=== PATIENT | male | born 1965 | race Hispanic/Latino ===

== ENCOUNTER → 2024-03-15 | Day surgery (SDC) | payer OTHER ==
[~2024-03-15] MED LIST: ACETAMINOPHEN 1000 MG/100 ML IV PRN; ASPIRIN 325 MG TAB PO SCH; ASPIRIN81 MG PO; CELECOXIB 100 MG CAP PO SCH; DIPHENHYDRAMINE HCL INJ 50 MG/ML VIAL IV PRN; DOCUSATE SODIUM 100 MG CAP PO PRN; GEMFIBROZIL600 MG PO; HYDROCODONE/APAP 5MG-325MG TAB PO PRN; METFORMIN HCL500 MG PO; ONDANSETRON HCL INJ 2MG/ML 2ML 2 MG/ML VIAL IV PRN; ROPIVACAINE 246.25 MG, EPINEPHRINE HCL 1:1000 1ML 0.5 MG, CLONIDINE HCL 0.08 MG, KETORO... INJ ONE; ROPIVACAINE/EPI/CLONIDINE/KET 50 ML SYRINGE INJ ONE; SODIUM CHLORIDE 0.9% 1000ML 1,000 ML IV SCH; SODIUM CHLORIDE 0.9% 500ML 500 ML ONE; TRANEXAMIC ACID 20 ML ONE; TYLENOL325 MG PO; Vancomycin IV 500 MG ONE; ZESTRIL2.5 MG PO; ZETIA10 MG PO
[2024-03-15] MEDS: CEFAZOLIN SODIUM 2 GM ONE (09:30)
[2024-03-15] MEDS: LACTATED RINGER'S 1,000 ML ONE (09:30)
[2024-03-15] MEDS: GABAPENTIN 300 MG CAP ONE (09:30)
[2024-03-15] MEDS: DEXAMETHASONE SOD PHOS 10 MG/1 ML VIAL ONE (09:30)
[2024-03-15] MEDS: CELECOXIB 200 MG CAP ONE (09:30)
[2024-03-15] MEDS: FENTANYL CITRATE/PF 100MCG/2 ML INJ ONE (14:08)
[2024-03-15] MEDS: HYDROCODONE/APAP 7.5MG-325MG 1 EA TAB PO PRN (14:08)
[2024-03-15] MEDS: KETOROLAC TROMETHAMINE 30 MG/ML VIAL ONE (15:22)
[2024-03-15 15:50] VITALS: BP 152/86; PULSE 81; RESP 17; O2SAT 98
== END | disposition home health service (06) ==
LOC: OR 08:43
PROVIDERS: ATTEND Specialist
DX: M17.12 Unilateral primary osteoarthritis, left knee (principal); M25.762 Osteophyte, left knee; I10 Essential (primary) hypertension; E11.9 Type 2 diabetes mellitus without complications; G89.29 Other chronic pain; Z71.3 Dietary counseling and surveillance; Z71.82 Exercise counseling; Z01.812 Encounter for preprocedural laboratory examination; Z79.84 Long term (current) use of oral hypoglycemic drugs; Z79.899 Other long term (current) drug therapy; Z87.891 Personal history of nicotine dependence
CPT/HCPCS: 27447; 36415; 73560; 82948; 86850; 86900; 97110; 97116; 97161; C1713 ×2; C1776 ×4; J0171; J0690; J1100; J1885; J2795; J3010; J3370; J7040; J7121

== ENCOUNTER 2024-04-07 07:00 | Outpatient (RCR) | payer OTHER ==
[~2024-04-07 07:00] MED LIST changes: -ACETAMINOPHEN 1000 MG/100 ML IV PRN; -ASPIRIN 325 MG TAB PO SCH; -CELECOXIB 100 MG CAP PO SCH; -DIPHENHYDRAMINE HCL INJ 50 MG/ML VIAL IV PRN; -DOCUSATE SODIUM 100 MG CAP PO PRN; -HYDROCODONE/APAP 5MG-325MG TAB PO PRN; -ONDANSETRON HCL INJ 2MG/ML 2ML 2 MG/ML VIAL IV PRN; -ROPIVACAINE 246.25 MG, EPINEPHRINE HCL 1:1000 1ML 0.5 MG, CLONIDINE HCL 0.08 MG, KETORO... INJ ONE; -ROPIVACAINE/EPI/CLONIDINE/KET 50 ML SYRINGE INJ ONE; -SODIUM CHLORIDE 0.9% 1000ML 1,000 ML IV SCH; -SODIUM CHLORIDE 0.9% 500ML 500 ML ONE; -TRANEXAMIC ACID 20 ML ONE; -Vancomycin IV 500 MG ONE
== END 2024-04-10 ==
LOC: PT 07:00
PROVIDERS: ATTEND Physician Assistant
DX: Z47.1 Aftercare following joint replacement surgery (principal); Z96.652 Presence of left artificial knee joint

== ENCOUNTER → 2024-05-11 | Outpatient (RCR) | payer OTHER | LOC: PT 04-12 06:26 | PROVIDERS: ATTEND Physician Assistant | DX: Z47.1 Aftercare following joint replacement surgery (principal); Z96.652 Presence of left artificial knee joint ==

== ENCOUNTER → 2024-06-11 | Outpatient (RCR) | payer OTHER | LOC: PT 05-14 06:42 | PROVIDERS: ATTEND Physician Assistant | DX: Z47.1 Aftercare following joint replacement surgery (principal); Z96.652 Presence of left artificial knee joint ==

== ENCOUNTER 2024-06-15 07:00 | Outpatient (RCR) | payer OTHER | END 2024-07-09 | LOC: PT 07:00 | PROVIDERS: ATTEND Physician Assistant | DX: Z47.1 Aftercare following joint replacement surgery (principal); Z96.652 Presence of left artificial knee joint ==